=== PATIENT | female | born 1990 | race African-American/Black ===

== ENCOUNTER 2017-07-24 07:41 | Emergency (ER) | payer OTHER ==
[~2017-07-24] VITALS: Ht 154.9 cm; Wt 73.3 kg
[2017-07-24 07:44] VITALS: BP 127/59
== END 2017-07-24 10:35 | disposition left against medical advice (07) ==
LOC: EME 07:41
DX: Z53.21 Procedure and treatment not carried out due to patient leaving prior to being seen by health care provider (principal)
CPT/HCPCS: 99281